=== PATIENT | male | born 1985 | race American Indian/Alaskan Native ===

== ENCOUNTER 2016-11-06 10:13 | Emergency (ER) | payer SELFPAY ==
[2016-11-06 10:25] VITALS: BP 137/90
== END 2016-11-06 14:40 | disposition left against medical advice (07) ==
LOC: ED 10:13
DX: R50.9 Fever, unspecified (principal); M79.1 Myalgia; R51 Headache; Z53.21 Procedure and treatment not carried out due to patient leaving prior to being seen by health care provider